=== PATIENT | female | born 1960 | race Caucasian/White ===

== ENCOUNTER 2020-09-18 15:38 | Emergency (ER) | payer BC ==
--- NOTE | 2020-09-18 16:03 | ED Physician Documentation ---
History of Present Illness - Stated complaint Stated Complaint: LT SHOULDER/MOUTH NUMB - Chief complaint Chief Complaint: General - History obtained from History obtained from: Patient - Additonal information Additional information: 60-year-old woman with borderline hypertension has been back at work after a 2- week hiatus because her had a heart attack. 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 It was severe but is now gone after icing it. Last night she noticed numbness of both sides of her chin and her tongue. It is persistent today. No headache. No other neurologic symptoms. Of note she started hydrochlorothiazide about a month ago for pedal edema. 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 - Allergies Allergies/Adverse Reactions: Allergies Allergy/AdvReac Type Severity Reaction Status Date / Time Sulfa (Sulfonamide AdvReac Rash Verified 09/18/20 15:47 Antibiotics) - Social History Does the pt smoke?: No Smoking Status: Never smoker Does the pt drink ETOH?: No Does the pt have substance abuse?: No - Immunizations Immunizations are current?: Yes - POLST Patient has POLST: No PD ED PE NORMAL - Vitals Vital signs reviewed: Yes - General General: Alert and oriented X 3, No acute distress - HEENT HEENT: PERRL, EOMI, Other (no assymmetry or abn sensation anywhere in the face) - Neck Neck: Supple, no meningeal sign, No bony TTP - Cardiac Cardiac: RRR, No murmur - Respiratory Respiratory: No respiratory distress, Clear bilaterally - Abdomen Abdomen: Normal bowel sounds, Non tender - Derm Derm: Normal color, Warm and dry - Extremities Extremities: No edema, No calf tenderness / cord - Neuro Neuro: Alert and oriented X 3, No motor deficit, No sensory deficit, Normal speech, Other (NIHSS zero) Results - Vitals Vitals: Vital Signs - 24 hr 09/18/20 15:42 Temperature 37.4 C Heart Rate 101 H Respiratory 16 Rate Blood Pressure 172/80 H O2 Saturation 97 Oxygen O2 Source Room air - EKG (time done) 1607 Rate: Rate (enter#) (92) Rhythm: NSR [place]: Normal Intervals: Prolonged TN, Prolonged QT (504msec) QRS: LVH Ischemia: Normal ST segments Computer interpretation: Agree with computer - Labs Labs: Laboratory Tests 09/18/20 09/18/20 09/18/20 16:26 16:26 16:26 WBC 7.8 RBC 4.23 Hgb 12.5 Hct 37.9 MCV 89.6 MCH 29.6 MCHC 33.0 RDW 12.7 Plt Count 243 MPV 8.8 Neut # (Auto) 5.3 Lymph # (Auto) 2.0 [place] # (Auto) 0.3 Eos # (Auto) 0.2 Baso # (Auto) 0.0 Absolute Nucleated RBC 0.00 Nucleated RBC % 0.0 Sodium 139 Potassium 3.1 L Chloride 98 L Carbon Dioxide 29 Anion Gap 12.0 BUN 12 Creatinine 0.7 Estimated GFR (MDRD) 85 L Glucose 141 H Calcium 9.2 Magnesium 2.2 Troponin I High Sens 4.4 - Rads (name of study) 2v chest Radiology: EMP read contemporaneously (normal) PD MEDICAL DECISION MAKING - ED course ED course: 60-year-old woman had left shoulder pain yesterday without injury, gone today, today notices bilateral numbness of the chin and tongue area. No corresponding neurologic findings. Full range of motion of the left shoulder. Given the symmetry, this does not fit a stroke syndrome. NIH stroke scale is 0. Could be a very atypical coronary equivalent. Could be electrolyte issue noting that she started hydrochlorothiazide a month ago. 60-year-old woman who had shoulder pain yesterday and has perioral paresthesias today. Only pertinent positive finding was hypokalemia which is repleted orally and may be causative of the paresthesias. Departure - Departure Disposition: 01 Home, Self Care Clinical Impression: Paresthesias, Hypokalemia Condition: Good Record reviewed to determine appropriate education?: Yes Instructions: Hypokalemia Dc Comments: No evidence of heart issue today. The only positive finding was low potassium which as discussed is likely from the new diuretic you are on. You can take an [id number] potassium supplements while you are on the diuretic. Return if worsening. Follow-up with your doctor next week.
[2020-09-18 16:31] LABS: BASOPHILS % (AUTO) 0.4 %; EOSINOPHILS # (AUTO) 0.2 10^3/uL (0.0-0.7); EOSINOPHILS % (AUTO) 2.2 %; HGB - HEMOGLOBIN 12.5 g/dL (12.0-16.0); LYMPHOCYTES % (AUTO) 25.2 %; MEAN CORPUSCULAR HEMOGLOBIN 29.6 pg (27.0-31.0); MEAN CORPUSCULAR VOLUME 89.6 fL (81.0-99.0); MEAN PLATELET VOLUME 8.8 fL (7.9-10.8); MONOCYTES # (AUTO) 0.3 10^3/uL (0.0-1.0); MONOCYTES % (AUTO) 4.3 %; NEUTROPHILS # (AUTO) 5.3 10^3/uL (1.5-6.6); NEUTROPHILS % (AUTO) 67.3 %; PLT - PLATELET COUNT 243 10^3/uL (130-450); RED BLOOD COUNT 4.23 10^6/uL (4.20-5.40); RED CELL DISTRIBUTION WIDTH 12.7 % (12.0-15.0); WHITE BLOOD COUNT 7.8 x10^3/uL (4.8-10.8)
--- NOTE | 2020-09-18 16:35 | XRAY Report ---
PROCEDURE: Chest 2 View X-Ray INDICATIONS: shoulder pain TECHNIQUE: 2 views of the chest. COMPARISON: None. FINDINGS: Surgical changes and devices: None. Lungs and pleura: No pleural effusions or pneumothorax. Lungs are clear. Mediastinum: Mediastinal contours are normal. Heart size is normal. Bones and chest wall: No suspicious bony abnormalities. Soft tissues appear unremarkable. Congenit al vertebral anomalies are partially visualized in the included lumbar spine. IMPRESSION: No acute cardiopulmonary abnormality. Reviewed by: Seun Soria MD on 09/18/2020 4:34 PM PST Approved by: Seun Soria MD on 09/18/2020 4:34 PM PST Station ID: [id number]
[2020-09-18 16:41] LABS: CALCIUM 9.2 mg/dL (8.5-10.3); CREATININE 0.7 mg/dL (0.4-1.0); MAGNESIUM 2.2 mg/dL (1.7-2.8)
[2020-09-18] MEDS ORDERED: POTASSIUM CHLORIDE 20 MEQ TABLET PO STA (16:42)
[2020-09-18 17:09] VITALS: BP 150/80
== END 2020-09-18 17:07 | disposition home or self-care (01) ==
LOC: ED 15:38
DX: E87.6 Hypokalemia (principal); R20.2 Paresthesia of skin; I45.81 Long QT syndrome; M25.512 Pain in left shoulder
CPT/HCPCS: 36415; 71046; 80048; 83735; 84484; 85025; 93005; 99283; 99284; A9270